=== PATIENT | female | born 1990 | race African-American/Black ===

== ENCOUNTER 2016-04-26 00:36 | Emergency (ER) | payer OTHER ==
[~2016-04-26] VITALS: Ht 167.6 cm; Wt 54.4 kg
[2016-04-26 00:43] VITALS: BP 126/94
--- NOTE | 2016-04-26 00:43 | NUR ---
PT C/O GENERALIZED ABD PAIN 10 X1DAY.
[2016-04-26 02:30] VITALS: BP 126/94
--- NOTE | 2016-04-26 02:30 | NUR ---
Patient discharged with v/s stable. Written and verbal after care instructions given and explained. Patient verbalized understanding. Ambulatory with steady gait. All questions addressed prior to discharge. Advised to follow up with PMD.
== END 2016-04-26 02:30 | disposition home or self-care (01) ==
LOC: MED 00:36 → EEVIPCON 00:36 → MED 02:30
DX: N91.2 Amenorrhea, unspecified (principal)